=== PATIENT | male | born 1970 | race Caucasian/White ===

== ENCOUNTER 2022-02-11 06:22 | Day surgery (SDC) | payer OTHER ==
[2022-02-05 16:05] VITALS: BMI 38.2
[2022-02-11] MEDS ORDERED: MIDAZOLAM HCL 2 MG/2 ML SINGLE DOSE VIAL ONE ×2 (07:05)
[2022-02-11] MEDS ORDERED: PROPOFOL 20 ML ONE ×2 (07:05)
[2022-02-11] MEDS ORDERED: ceFAZolin SODIUM 1 GM VIAL ONE ×2 (07:16→07:48)
[2022-02-11] MEDS ORDERED: THROMBIN (BOVINE) 5,000 UNIT VIAL TP ONE (07:17)
[2022-02-11] MEDS ORDERED: LIDOCAINE 1%/EPI 1:100000 (20 ML MULTI DOSE VIAL) ONE (07:17)
[2022-02-11] MEDS ORDERED: ERYTHROMYCIN 0.5% OPHTHALMIC OINTMENT 3.5 GM TUBE ONE (07:17)
[2022-02-11] MEDS ORDERED: BUPIVACAINE HCL 50 ML ONE (07:17)
[2022-02-11] MEDS ORDERED: POVIDONE-IODINE 5% OPHTHALMIC PREP 30 ML SOLUTION ONE (07:17)
[2022-02-11] MEDS ORDERED: TETRACAINE 0.5% OPHTH SOLN 2 ML BOTTLE ONE (07:17)
[2022-02-11] MEDS ORDERED: ONDANSETRON 4 MG/2 ML VIAL ONE ×2 (08:38→09:44)
[2022-02-11] MEDS ORDERED: DEXAMETHASONE SOD PHOSPHATE 4 MG/1 ML VIAL ONE (08:38)
[2022-02-11] MEDS ORDERED: ONDANSETRON 4 MG/2 ML VIAL IVPUSH PRN (09:21)
[2022-02-11] MEDS ORDERED: LACTATED RINGERS SOLUTION 1,000 ML IV SCH (09:30)
[2022-02-11 09:44] VITALS: TEMP 97.3
[2022-02-11] MEDS ORDERED: traMADol HCL 50 MG TABLET ONE (11:01)
[2022-02-11] MEDS ORDERED: ARTIFICIAL TEARS (POLYVINYL ALCOHOL) OPTH DROPS OD ONE (11:30)
[2022-02-11 11:36] VITALS: BP 114/75; PULSE 69
[2022-02-11] MEDS ORDERED: traMADol HCL 50 MG TABLET PO ONE (13:21)
== END 2022-02-11 11:40 | disposition home or self-care (01) ==
LOC: FASU 06:22
PROVIDERS: ATTEND Ophthalmology
PROC: 08SN0ZZ Reposition Right Upper Eyelid, Open Approach (ICD-10-PCS; principal; 2022-02-11 08:08)
DX: H02.1 Ectropion of eyelid (principal)
CPT/HCPCS: 88304-TC; 94760

== ENCOUNTER 2022-08-26 06:13 | Day surgery (SDC) | payer OTHER ==
[2022-08-25 10:58] VITALS: BMI 38.2
[2022-08-26] MEDS ORDERED: ERYTHROMYCIN 0.5% OPHTHALMIC OINTMENT 3.5 GM TUBE ONE (07:17)
[2022-08-26] MEDS ORDERED: TETRACAINE 0.5% OPHTH SOLN 2 ML BOTTLE ONE (07:17)
[2022-08-26] MEDS ORDERED: BUPIVACAINE HCL/PF 0.5% (5MG/ML) 10 ML VIAL ONE (07:18)
[2022-08-26] MEDS ORDERED: SUCCINYLCHOLINE CHLORIDE 200 MG/10 ML SYRINGE ONE (07:22)
[2022-08-26] MEDS ORDERED: PROPOFOL 40 ML ONE (07:22)
[2022-08-26] MEDS ORDERED: MIDAZOLAM HCL 2 MG/2 ML SINGLE DOSE VIAL ONE (07:23)
[2022-08-26] MEDS ORDERED: LIDOCAINE HCL/PF 2% SDV 5ML VIAL ONE (07:24)
[2022-08-26] MEDS ORDERED: LIDOCAINE HCL 2% JELLY 11 ML TP ONE (07:24)
[2022-08-26] MEDS ORDERED: ceFAZolin SODIUM 1 GM VIAL ONE (07:27)
[2022-08-26] MEDS ORDERED: POVIDONE-IODINE 5% OPHTHALMIC PREP 30 ML SOLUTION ONE (07:46)
[2022-08-26] MEDS ORDERED: GLYCOPYRROLATE 0.2 MG/1 ML VIAL ONE (08:27)
[2022-08-26] MEDS ORDERED: PROPOFOL 20 ML ONE (09:42)
[2022-08-26 10:59] VITALS: RESP 18; TEMP 97.7
[2022-08-26 11:36] VITALS: BP 124/81; PULSE 85
== END 2022-08-26 11:30 | disposition home or self-care (01) ==
LOC: FASU 06:13
PROVIDERS: ATTEND Ophthalmology
PROC: 08BP0ZZ Excision of Left Upper Eyelid, Open Approach (ICD-10-PCS; principal; 2022-08-26 08:30)
DX: H02.89 Other specified disorders of eyelid (principal)
CPT/HCPCS: 88304-TC; 94760